=== PATIENT | female | born 1960 | race Caucasian/White ===

== ENCOUNTER 2020-02-17 06:36 | Inpatient (IN) | payer OTHER ==
[2020-02-17] MEDS ORDERED: Ondansetron PF 4 MG/2 ML Vial ONE (07:39)
[2020-02-17] MEDS ORDERED: Lorazepam 2 MG/ML VIAL ONE (07:39)
[2020-02-17] MEDS ORDERED: Morphine 4 MG/ML VIAL ONE (07:39)
[2020-02-17] MEDS ORDERED: Ketorolac Tromethamine 30 MG/ML VIAL ONE (07:39)
[2020-02-17 07:52] LABS: #Lymphocytes 1.1 thou/uL (1.20-3.40); #Monocytes 0.4 thou/uL (0.11-0.59); #Neutrophils 3.4 thou/uL (1.40-6.50); %Basophils 0.5 % (0.0-1.0); %Eosinophils 0.5 % (0.0-10.0); %Lymphocytes 21.9 % (21.0-51.0); Hemoglobin 14.1 g/dL (12.0-16.0); Mean Corpuscular HGB CONC 34.6 g/dL (32.0-36.0); Mean Corpuscular Hemoglobin 34.4 pg (27.0-31.0); Mean Corpuscular Volume 99.6 fL (78.0-98.0); Mean Platelet Volume 6.8 fL (7.4-10.4); Platelet Count 238 thou/uL (130-400); RBC Distribution Width 10.6 % (11.5-14.5); Red Blood Cell (RBC) Count 4.11 mill/uL (4.20-5.40)
[2020-02-17 08:01] LABS: PTT 25.5 sec (22.9-36.1); Prothrombin Time 12.9 sec (12.0-14.7)
[2020-02-17 08:16] LABS: ALT (SGPT) 13 U/L (8-55); AST (SGOT) 18 U/L (5-34); Albumin 4.2 g/dL (3.4-4.8); Alkaline Phosphatase 83 U/L (40-110); Anion Gap 16 mmol/L (10-20); BUN (Urea Nitrogen) 13 mg/dL (9.8-20.1); Bilirubin, Total 0.6 mg/dL (0.2-1.2); Calc. Creatinine Clearance 0 mL/min (70-130); Calcium 9.3 mg/dL (7.8-10.44); Carbon Dioxide 23 mmol/L (23-31); Chloride 105 mmol/L (98-107); Estimated GFR-MDRD 69; Globulin 2.6 g/dL (2.4-3.5); Glucose 131 mg/dL (80-115); Potassium 3.7 mmol/L (3.5-5.1); Protein, Total 6.8 g/dL (6.0-8.3); Sodium 140 mmol/L (136-145)
[2020-02-17 08:41] LABS: Bilirubin Negative (Negative); Blood, Urine Negative (Negative); Clarity Clear (Clear); Glucose, Urine (Dipstick) Normal (Negative); Ketone, Urine Negative (Negative); Leukocyte Negative Leu/uL (Negative); Nitrite Negative (Negative); Protein, Urine (Dipstick) Negative (Neg-Trace); Specific Gravity, Urine 1.007 (1.002-1.036); Urobilinogen Normal mg/dL (Less than 2); pH, Urine 6.5 (5.0-9.0)
--- NOTE | 2020-02-17 09:35 | CON ---
DATE OF CONSULTATION: 02/17/2020 CHIEF COMPLAINT: Left hip pain. HISTORY OF PRESENT ILLNESS: Ms. Robbins is a 59-year-old female, who has presented to the emergency department today with left hip pain. Approximately 5 weeks ago, she fell. She fractured her distal radius at that time and has been in a brace. She has had hip pain since her fall. She has had difficulty with ambulation. She had an x-ray taken 2 to 3 weeks ago in [place], which was reported to be negative. She continued to have hip pain until last night, when she twisted the hip and fell. She had a pop before she fell and immediate pain. She was unable to ambulate after this. She had severe pain in the groin. She was taken to the emergency department. X-rays have shown a displaced femoral neck fracture. PAST MEDICAL HISTORY: No active medical problems. PAST SURGICAL HISTORY: No recent surgeries. REVIEW OF SYSTEMS: Positive for left hip pain and wrist pain. FAMILY MEDICAL HISTORY: Noncontributory. ALLERGIES: NO KNOWN DRUG ALLERGIES. IMAGES: Left hip x-ray demonstrated displaced femoral neck fracture. The patient has shortening of the limb. PHYSICAL EXAMINATION: VITAL SIGNS: Stable. The patient is afebrile. GENERAL: She is alert and oriented, in no apparent distress. Breathing comfortably. HEENT: Normocephalic and atraumatic. RESPIRATORY: Breathing comfortably. ABDOMEN: Soft, nontender, nondistended. MUSCULOSKELETAL: The patient's left leg has pain with motion. The left leg is shortened and externally rotated. She is able to flex and extend the foot and ankle. She is in a wrist brace on the left. IMPRESSION: Left femoral neck fracture, likely subacute, but newly displaced. PLAN: At this point, the patient will need surgical intervention. I have recommended total hip arthroplasty for her, given her very active status and fairly young age. I think total hip will give her the best chance of full recovery. She is from [place] and her sons would like her to be transferred to [place] for this, I think this would be just fine. I am happy to treat her if she does stay here. She will be n.p.o. for now. She has had a COVID test, which is pending. She has had appropriate labs. Again, I am available, we will discuss surgical intervention more if she decides to stay. Job ID: [id number]
[2020-02-17 09:44] LABS: SARS-CoV-2 NAA Rapid Test Not Detected (NotDetected)
--- NOTE | 2020-02-17 10:10 | RAD ---
TWO VIEWS LEFT HIP: HISTORY: Left hip pain after feeling a pop. FINDINGS: Two views of the left hip show a fracture of the left femoral neck. Mild soft tissue swelling is see n. No dislocation of the femoral head is seen. IMPRESSION: Left femoral neck fracture. POS: MARIA MA
--- NOTE | 2020-02-17 10:11 | RAD ---
SINGLE VIEW OF THE PELVIS: COMPARISON: None. HISTORY: The patient felt a pop and left hip pain. FINDINGS: A single view of the pelvis shows a fracture of the left femoral neck. Soft tissue swelling is seen surrounding the left hip. No degenerative changes are seen in the hip. No dislocation of either fem oral head is seen. Mild degenerative changes are seen in the lumbar spine. IMPRESSION: Left femoral neck fracture. POS: EAA
--- NOTE | 2020-02-17 10:11 | RAD ---
SINGLE VIEW OF THE CHEST: COMPARISON: None. HISTORY: Left hip fracture. Preoperative radiograph. FINDINGS: Single view of the chest shows a normal sized cardiomediastinal silhouette. There is no evidence of c onsolidation, mass, or pleural effusion. The bones are unremarkable. IMPRESSION: No evidence of acute cardiopulmonary disease. POS: EAA
[2020-02-17] MEDS ORDERED: Fentanyl 100 MCG/2 ML VIAL ONE (11:11)
[2020-02-17] MEDS ORDERED: traMADol HCl 50 MG TAB PO PRN ×2 (11:25)
[2020-02-17] MEDS ORDERED: Dextrose 5% in Water 1,000 ML IV PRN (11:25)
[2020-02-17] MEDS ORDERED: Ondansetron ODT 4 MG TAB PO PRN (11:25)
[2020-02-17] MEDS ORDERED: Morphine 2 MG/ML VIAL SLOW IVP PRN (11:25)
[2020-02-17] MEDS ORDERED: Ondansetron PF 4 MG/2 ML Vial IVP PRN ×2 (11:25→17:57)
[2020-02-17] MEDS ORDERED: Dextrose 50% Abboject 50 ML SYRINGE SLOW IVP PRN (11:25)
[2020-02-17] MEDS ORDERED: Digoxin 0.5 MG/2 ML AMP ONE (11:49)
[2020-02-17] MEDS ORDERED: Famotidine 20 MG TAB PO SCH (13:15)
[2020-02-17 14:10] VITALS: BMI 24.5
[2020-02-17 16:52] LABS: Magnesium 1.9 mg/dL (1.6-2.6); Phosphorus 3.9 mg/dL (2.3-4.7)
[2020-02-17] MEDS: Cyclobenzaprine 10 MG TAB PO PRN ×2 (17:00→23:40)
[2020-02-17] MEDS: Acetaminophen 325 MG TAB PO SCH ×2 (17:00→23:39)
[2020-02-17] MEDS: Ibuprofen 600 MG TAB PO SCH ×2 (17:01→20:51)
--- NOTE | 2020-02-17 17:15 | HP ---
REQUESTING PHYSICIAN: Torrey Yeboah MD ATTENDING SURGEON: Sharon Martin MD CONSULTATIONS: Orthopedics, Dr. Harden. HISTORY OF PRESENT ILLNESS: The patient is a 59-year-old woman who was brought to the emergency department this morning after she was outside on her porch when she reportedly had felt a pop in her hip and was unable to bear weight. She was brought to the emergency department and evaluated and examined, noted to have a left femoral neck fracture. The patient gives a history of this pain in her hip actually began 5 weeks prior when she fell. She was noted to have a distal radius fracture, that was treated with a splint and told that her hip was a groin strain and progressively got worse until this morning when she felt this pop. The patient denies loss of consciousness or any syncopal events preceding her fall. ALLERGIES: NONE. CURRENT MEDICATIONS: 1. Regular strength aspirin. 2. Estradiol patch. 3. Progestrin. 4. The patient also takes metoprolol, unknown dosage, when she feels her heart rate become rapid. PAST MEDICAL HISTORY: Atrial fibrillation. SURGICAL HISTORY: D and C, . SOCIAL HISTORY: The patient lives here locally with the majority of her family in [place]. She denies drug, tobacco, or alcohol use. REVIEW OF SYSTEMS: A 10-point review of systems is negative unless otherwise stated. PHYSICAL EXAMINATION: VITAL SIGNS: Blood pressure 127/98, heart rate 104, respirations 16, and oxygen saturation is 96% on room air. GENERAL: The patient is resting comfortably in bed. She is awake, alert, conversant, and appropriate. She is currently medicated with narcotics and is having some trouble with recall. Fortunately, her son is here to help. HEENT: Head is normocephalic and atraumatic. Eyes, extraocular motion intact. PERRLA bilaterally. Ears are atraumatic without discharge. Nose is atraumatic without discharge. Oropharynx is clear. NECK: Nontender. Trachea is midline with no JVD. CHEST: Clear to auscultation with good inspiratory and expiratory effort. HEART: Irregularly irregular, consistent with her atrial fibrillation. ABDOMEN: Soft, flat, and nontender with active bowel sounds. PELVIS: Stable with tenderness to palpation to the left hip consistent with her fracture. EXTREMITIES: Neurovascularly intact x4. Left upper extremity has a Velcro brace in place. BACK: By report is atraumatic and nontender. LABORATORY FINDINGS: White blood cell count 5.0, hemoglobin 14.1, hematocrit 40.9, and platelets 238. Sodium 140, potassium 3.7, chloride 105, CO2 of 23, BUN 13, creatinine 0.84, and glucose 131. LFTs are unremarkable. INR 1.0. Urinalysis is unremarkable. COVID test is negative. RADIOGRAPHIC REPORTS: AP chest x-ray shows no evidence of acute cardiopulmonary process. AP pelvis shows a displaced left femoral neck fracture. Views of the left hip again demonstrate the left femoral neck fracture. ASSESSMENT AND PLAN: 1. Status post fall. 2. Left femoral neck fracture. 3. History of atrial fibrillation with intermittent in rapid ventricular response. 4. Acute pain secondary to above. Plan will be to admit the patient to the telemetry floor. Per Dr. Harden, she will undergo surgery tomorrow. Today, she will have pulmonary toilet, gastritis and mechanical VTE prophylaxis, and pain control. Postoperatively, we will begin physical and occupational therapy and discuss placement. Per the family's wishes, attempts were made to transfer her to [facility] in [place], but they were declined, so the patient will have her surgical procedure here and we will discuss with Case Management placement in the [place] area. We will use metoprolol for rate control. The patient was evaluated and examined with Dr. Martin prior to this dictation. Job ID: [id number]
[2020-02-17] MEDS: Sodium Chloride 0.9% 1,000 ML IV SCH ×2 (17:17→20:08)
[2020-02-17] MEDS ORDERED: diphenhydrAMINE 50 MG/ML VIAL IVP PRN (17:57)
[2020-02-17] MEDS ORDERED: Zolpidem Tartrate 5 MG TAB PO PRN (17:57)
[2020-02-17] MEDS ORDERED: diphenhydrAMINE 25 MG CAP PO PRN (17:57)
[2020-02-17] MEDS ORDERED: Naloxone HCl 0.4 mg/ml Vial IV PRN (17:57)
[2020-02-17] MEDS ORDERED: diphenhydrAMINE 50 MG/ML VIAL IM PRN (17:57)
[2020-02-17] MEDS ORDERED: Promethazine HCl 25 MG/ML VIAL IM PRN (17:57)
[2020-02-17] MEDS ORDERED: fentaNYL Citrate/PF 2,000 MCG in Sodium Chloride 0.9% 60 ML IV PRN (17:57)
[2020-02-17] MEDS ORDERED: Communication Order-Pharmacy FS SCH (18:00)
[2020-02-17] MEDS ORDERED: Fentanyl 100 MCG/2 ML VIAL SLOW IVP SCH ×2 (18:00→18:45)
[2020-02-17] MEDS: Famotidine 20 MG TAB PO SCH (20:50)
[2020-02-18] MEDS: Ibuprofen 600 MG TAB PO SCH ×3 (02:56→21:14)
[2020-02-18] MEDS: Acetaminophen 325 MG TAB PO SCH ×3 (02:56→17:33)
[2020-02-18 05:49] LABS: Anion Gap 11 mmol/L (10-20); BUN (Urea Nitrogen) 9 mg/dL (9.8-20.1); Calc. Creatinine Clearance 84 mL/min (70-130); Calcium 7.9 mg/dL (7.8-10.44); Carbon Dioxide 24 mmol/L (23-31); Chloride 106 mmol/L (98-107); Estimated GFR-MDRD 77; Glucose 103 mg/dL (80-115); Magnesium 1.8 mg/dL (1.6-2.6); Phosphorus 3.1 mg/dL (2.3-4.7); Potassium 3.9 mmol/L (3.5-5.1); Sodium 137 mmol/L (136-145)
[2020-02-18 05:57] LABS: Band 2 % (5-11); Hemoglobin 12.3 g/dL (12.0-16.0); Lymphocytes 38 % (21-51); MDiff Complete? YES; Macrocytosis SLIGHT = 6-15 cells (100X) (0-5/hpf); Mean Corpuscular HGB CONC 34.5 g/dL (32.0-36.0); Mean Corpuscular Hemoglobin 34.8 pg (27.0-31.0); Mean Platelet Volume 6.9 fL (7.4-10.4); Monocytes 26 % (0-10); Neutrophil 34 % (42-75); Platelet Count 201 thou/uL (130-400); Platelet Morphology Comment Appears Adequate; RBC Distribution Width 10.7 % (11.5-14.5); Red Blood Cell (RBC) Count 3.52 mill/uL (4.20-5.40); White Blood Cell (WBC) Count 4.1 thou/uL (4.8-10.8)
[2020-02-18] MEDS ORDERED: Magnesium Sulfate 3 GM in Sodium Chloride 0.9% 250 ML 250 ML IVPB SCH ×2 (08:00→15:15)
[2020-02-18] MEDS ORDERED: Scopolamine 1.5 mg/72 hour Patch ONE (09:11)
[2020-02-18] MEDS ORDERED: Dexamethasone 4 mg/ml Vial ONE (09:13)
[2020-02-18] MEDS ORDERED: Fentanyl 100 MCG/2 ML VIAL ONE ×2 (09:13→10:13)
[2020-02-18] MEDS ORDERED: Midazolam HCl 2 mg/2 ml Vial ONE (09:13)
[2020-02-18] MEDS ORDERED: ePHEDrine 50 MG/ML VIAL ONE (10:37)
[2020-02-18] MEDS ORDERED: Rocuronium Bromide 10 MG/ML (10ML VIAL) ONE (10:37)
[2020-02-18] MEDS ORDERED: Ondansetron PF 4 MG/2 ML Vial ONE (10:37)
[2020-02-18] MEDS ORDERED: Lidocaine 1% PF 5 ML VIAL ONE (10:37)
[2020-02-18] MEDS ORDERED: Ketorolac Tromethamine 30 MG/ML VIAL ONE (10:37)
[2020-02-18] MEDS ORDERED: Glycopyrrolate 0.2 MG/ML 5 ML SYRINGE ONE (10:37)
[2020-02-18] MEDS ORDERED: Dexamethasone 20 MG/5 ML VIAL ONE ×2 (10:37)
[2020-02-18] MEDS ORDERED: PROPOFOL 200 MG/20 ML VIAL ONE (10:37)
[2020-02-18] MEDS ORDERED: Bupivacaine HCl 0.5%/Epinephrine 1:200,000/PF 30 ml Vial ONE (10:37)
--- NOTE | 2020-02-18 12:07 | OP ---
DATE OF PROCEDURE: 02/18/2020 PROCEDURE PERFORMED: Left total hip arthroplasty. PREOPERATIVE DIAGNOSIS: Left femoral neck fracture. POSTOPERATIVE DIAGNOSIS: Left femoral neck fracture. COMPLICATIONS: None. ESTIMATED BLOOD LOSS: 150 mL. ELEVATOR EXAMINER AND ADJUSTER: Jordyn Arenas PA-C IMPLANTS: Mcdonald total hip arthroplasty with a size 4 Accolade stem, size 52 acetabular cup with a 10 degree polyethylene shell, femoral head is 36 mm, -5 length. INDICATIONS: Ms. Robbins is a 59-year-old female, who has fallen and fractured her left femoral neck. She had a displaced femoral neck fracture that will best be treated by total hip arthroplasty. The patient's alternative treatment options have been reviewed. Risks have been reviewed as well. Risks to include infection, neurovascular injury, instability of the hip, DVT, PE, and others. DESCRIPTION OF PROCEDURE: Ms. Robbins was identified in the preoperative holding area. Her correct extremity was marked. She was carried to the operating room. She was positioned supine. General anesthesia was induced. A multidisciplinary time-out was performed. The left lower extremity was prepped and draped in sterile fashion. We began the procedure with posterior approach to the hip. We dissected down through the subcutaneous tissues to the fascia, which was opened. We explored more deeply down to the piriformis tendons and short external rotators. These were subperiosteally divided from the proximal femur. This allowed us exposure of the underlying capsule. We performed a capsulotomy in a box fashion. At this point, we removed the broken femoral head and neck fragments. We then performed a new osteotomy of the femoral neck. At this point, we cleared the acetabular shell of any remnants and irrigated thoroughly. We then moved to the femur. We entered the intramedullary canal of the femur with a broach. We broached up to a size 4. This gave a very stable fit and fill. We trialed off this. A -5 head length was appropriate with leg length and good range of motion and stability. At this point, we removed the trial components. We placed our final components. Again, we reduced the hip. We thoroughly irrigated it and then closed with #5 Ethibond for the short external rotators and capsule through drill holes. We then completed a layered closure including the fascia and subcutaneous tissues. A sterile dressing was applied. The collections assistant surgeon was responsible for positioning the patient, preparing the injured extremity, applying the tourniquet, and assisting in preparation for surgery. The collections assistant was instrumental in reducing the injured limb by applying traction and reduction maneuvers as well as holding retractors and reduction tools. The collections assistant also was instrumental in assisting in exposure throughout the operation using appropriate retractors. The collections assistant participated in closure of the operative site as well as dressing application and splint application. Job ID: [id number]
[2020-02-18] MEDS ORDERED: Promethazine HCl 25 MG/ML VIAL IM PRN (12:15)
[2020-02-18] MEDS ORDERED: Promethazine HCl 25 MG/ML VIAL SLOW IVP PRN (12:15)
[2020-02-18] MEDS ORDERED: Ondansetron HCl/PF 4 MG/2 ML Vial IVP PRN (12:15)
[2020-02-18] MEDS: Famotidine 20 MG TAB PO SCH ×2 (14:18→21:13)
--- NOTE | 2020-02-18 14:32 | RAD ---
EXAM: Single view of the left hip HISTORY: Status post hip arthroplasty COMPARISON: 02/17/2020 FINDINGS/IMPRESSION: A single view of the left hip shows the patient is status post left hip arthropl asty without perihardware lucency or fracture. Overlying skin chuy are from recent surgery.
--- NOTE | 2020-02-18 14:33 | RAD ---
Exam: Single view of the pelvis HISTORY: Status post left hip arthroplasty COMPARISON: 02/17/2020 FINDINGS: A single view the pelvis shows the patient is status post left hip arthroplasty without per ihardware lucency or fracture. Overlying skin chuy are from recent surgery. No degenerative changes seen in the right hip. IMPRESSION: Status post left hip arthroplasty without evidence of complication.
[2020-02-18] MEDS ORDERED: Vancomycin 1.5 GRAM/300 ML BAG 1.5 GM in Premix Bag 1 BAG IVPB SCH (16:30)
[2020-02-18] MEDS: CEFAZOLIN 2 GM in Premix Bag 1 BAG IVPB SCH (18:43)
[2020-02-19] MEDS: Acetaminophen 325 MG TAB PO SCH ×5 (00:07→23:59)
[2020-02-19] MEDS: CEFAZOLIN 2 GM in Premix Bag 1 BAG IVPB SCH ×3 (02:11→21:04)
--- NOTE | 2020-02-19 04:15 | HP ---
ADDENDUM: This is an addendum to the H and P dictated by Trent Gates on 02/17/2020. For full details, please see that H and P, the details of which I have confirmed. The patient was seen yesterday afternoon after her admission to the hospital. In short, she fell several weeks ago and broke her arm and had left hip pain, but reportedly had a normal hip or pelvic x-ray at an outside facility. She then had a popping sensation in her left hip and then fell and was unable to bear weight on her leg and was found to have a left femoral neck fracture. She was admitted to the hospital with plans to undergo operative fixation by Orthopedics. When I saw her, she was having muscle spasms in her left hip and thigh area, but was otherwise pain free. PAST MEDICAL HISTORY: She has a past medical history of atrial fibrillation, but is not on any blood thinners for this. ALLERGIES: SHE HAS NO ALLERGIES. MEDICATIONS: Takes; 1. Aspirin. 2. Estradiol. 3. Progestin. 4. Metoprolol as needed. PHYSICAL EXAMINATION: Complete physical examination was performed. HEENT: Head was atraumatic. Pupils are equal with extraocular movements intact. Face was symmetric with no tenderness to palpation or asymmetry. NECK: Supple without lymphadenopathy or thyroid nodules. HEART: Regular in its rate and rhythm without murmurs, rubs, or gallops. LUNGS: Clear to auscultation bilaterally. No pain with palpation of the chest, abdomen, or pelvis, and no instability or crepitus. ABDOMEN: Soft, nontender, nondistended without masses or hernias. EXTREMITIES: Warm and well perfused with normal distal pulses and normal sensation. She has slight foreshortening of the left leg. Left arm was in a splint with normal movement and sensation of the fingers. No deformity to the right arm. LABORATORY DATA: Lab work was unremarkable. Coags were normal and COVID test was negative. Chest x-ray was unremarkable. AP pelvis showed a left femoral neck fracture. ASSESSMENT AND PLAN: Left femoral neck fracture, possible with subclinical injury at the time of her initial fall and now with obvious fracture. She is going to undergo surgery for this and will undergo physical therapy and rehab postoperatively. Initially, she was thinking about transferring to [place], but she has decided to proceed with surgery here. Job ID: [id number]
[2020-02-19 05:54] LABS: Anion Gap 12 mmol/L (10-20); BUN (Urea Nitrogen) 8 mg/dL (9.8-20.1); Calc. Creatinine Clearance 90 mL/min (70-130); Calcium 7.8 mg/dL (7.8-10.44); Carbon Dioxide 25 mmol/L (23-31); Chloride 105 mmol/L (98-107); Estimated GFR-MDRD 84; Glucose 123 mg/dL (80-115); Magnesium 2.1 mg/dL (1.6-2.6); Phosphorus 2.5 mg/dL (2.3-4.7); Potassium 4.2 mmol/L (3.5-5.1); Sodium 138 mmol/L (136-145)
[2020-02-19] MEDS: Ibuprofen 600 MG TAB PO SCH ×3 (05:54→21:02)
[2020-02-19 06:15] LABS: Band 2 % (5-11); Hemoglobin 10.7 g/dL (12.0-16.0); Lymphocytes 35 % (21-51); MDiff Complete? YES; Macrocytosis SLIGHT = 6-15 cells (100X) (0-5/hpf); Mean Corpuscular Hemoglobin 34.1 pg (27.0-31.0); Mean Platelet Volume 7.6 fL (7.4-10.4); Monocytes 12 % (0-10); Neutrophil 51 % (42-75); Platelet Count 175 thou/uL (130-400); Platelet Morphology Comment Appears Adequate; RBC Distribution Width 10.6 % (11.5-14.5); Red Blood Cell (RBC) Count 3.12 mill/uL (4.20-5.40); White Blood Cell (WBC) Count 3.9 thou/uL (4.8-10.8)
[2020-02-19] MEDS ORDERED: Vancomycin 1.5 GRAM/300 ML BAG ONE (07:47)
[2020-02-19] MEDS ORDERED: Fentanyl 100 MCG/2 ML VIAL ONE (08:03)
[2020-02-19] MEDS ORDERED: Dexmedetomidine 200 MCG/2 ML VIAL ONE (08:03)
[2020-02-19] MEDS ORDERED: Vancomycin 1.5 GRAM/300 ML BAG 1.5 GM in Premix Bag 1 BAG IVPB SCH (09:00)
[2020-02-19] MEDS ORDERED: PACU-Morphine 4MG/ML VIAL SLOW IVP PRN (09:02)
[2020-02-19] MEDS ORDERED: Naloxone HCl 0.4 mg/ml Vial IV PRN (09:02)
[2020-02-19] MEDS ORDERED: HYDROmorphone 10 mg/100 ml CADD IVPB PRN ×2 (09:02→11:57)
[2020-02-19] MEDS ORDERED: Promethazine HCl 25 MG/ML VIAL IM PRN ×2 (09:02)
[2020-02-19] MEDS ORDERED: diphenhydrAMINE 50 MG/ML VIAL IM PRN (09:02)
[2020-02-19] MEDS ORDERED: Promethazine HCl 25 MG/ML VIAL SLOW IVP PRN (09:02)
[2020-02-19] MEDS ORDERED: Ondansetron HCl/PF 4 MG/2 ML Vial IVP PRN (09:02)
[2020-02-19] MEDS ORDERED: diphenhydrAMINE 25 MG CAP PO PRN (09:02)
[2020-02-19] MEDS ORDERED: diphenhydrAMINE 50 MG/ML VIAL IVP PRN (09:02)
[2020-02-19] MEDS ORDERED: HYDROmorphone 2 MG/ML VIAL SLOW IVP PRN (09:02)
[2020-02-19] MEDS ORDERED: Ondansetron PF 4 MG/2 ML Vial IVP PRN (09:02)
[2020-02-19] MEDS ORDERED: Zolpidem Tartrate 5 MG TAB PO PRN (09:02)
[2020-02-19] MEDS ORDERED: Communication Order-Pharmacy FS SCH (09:15)
[2020-02-19] MEDS ORDERED: Bupivacaine PF 0.5% 30 ML VIAL ONE (09:45)
[2020-02-19] MEDS ORDERED: EPINEPHrine 1 MG/ML AMP ONE (09:46)
--- NOTE | 2020-02-19 09:57 | RAD ---
Single view left hip: 02/19/2020 COMPARISON: 02/18/2020 HISTORY: Hip surgery FINDINGS: Single obliquely oriented frontal radiograph of the left hip demonstrates a left hip arthro plasty. There is a new cerclage wire involving the proximal left femoral shaft. Lateral soft tissue gas noted with irregularity of the skin laterally consistent with recent surgery. IMPRESSION: Left hip arthroplasty.
[2020-02-19] MEDS ORDERED: HYDROmorphone 0.5 MG/0.5 ML SYRINGE ONE (10:08)
--- NOTE | 2020-02-19 10:55 | RAD ---
Frontal radiograph pelvis: 02/19/2020 COMPARISON: 02/18/2020 HISTORY: Left hip arthroplasty FINDINGS: Left lateral cutaneous chuy are present. There is postoperative gas lateral to the left greater trochanter. There is a stable left hip arthroplasty with a new cerclage wire associated with the proximal left femoral shaft. The pelvic ring appears intact. There is no widening of the sac roiliac joints or the pubic symphysis. IMPRESSION: Postoperative imaging as above.
--- NOTE | 2020-02-19 11:00 | RAD ---
Crosstable lateral view of the left hip: 02/19/2020 HISTORY: Evaluate hip following surgery FINDINGS: There is a left hip arthroplasty with no evidence for dislocation. A proximal femoral cercl age wire is noted. Pression: Postoperative imaging as above.
--- NOTE | 2020-02-19 11:22 | OP ---
DATE OF PROCEDURE: 02/19/2020 PROCEDURE PERFORMED: Revision of left total hip arthroplasty. PREOPERATIVE DIAGNOSIS: Status post left hip arthroplasty for femoral neck fracture, now with leg length discrepancy. POSTOPERATIVE DIAGNOSIS: Status post left hip arthroplasty for femoral neck fracture, now with leg length discrepancy. COMPLICATIONS: None. ESTIMATED BLOOD LOSS: 100 mL. KNITTING MACHINE FIXER HEAD: Jordyn Arenas PA-C. IMPLANTS USED: A size 4 Accolade hip stem with a 36 mm -5 femoral head as well as a 2.0 mm [place]iles cable. INDICATIONS: Ms. Robbins is a 59-year-old female, who has fallen recently and fractured her left femoral neck. She underwent total hip arthroplasty yesterday for her femoral neck fracture. Her surgical procedure went well. However, postoperatively, we noticed that she had a leg length discrepancy of approximately 12 mm. We had a long discussion regarding treatment of this including observation versus revision. The patient wanted to proceed with revision surgery to obtain better equal leg length. Goal is to revise the hip so that she has equal leg length and a stable hip. DESCRIPTION OF PROCEDURE: Ms. Robbins was identified in the preoperative holding area. Her correct extremity was marked. She was carried to the operating room. She was positioned supine. General anesthesia was induced. A multidisciplinary time-out was performed. The left lower extremity was prepped and draped in sterile fashion. We began the procedure by opening the patient's previous incision. We dissected down through the subcutaneous tissues and opened the fascia. This brought us down to the deep aspect of the hip. We cut our previously placed Ethibond sutures, releasing the capsule and piriformis tendons. At this point, we were able to dislocate the total hip. We knocked off the head using an osteotome. We then placed our stem extractor and removed the femoral stem. We thoroughly irrigated with copious lavage. At this point, we checked the acetabular cup, was in good position, which it was. We then proceeded to prepare the femoral canal. We began broaching up with a size 2 and then to a size 3. We then moved to a size 4. We were able to countersink the size 4. We removed this again and made a new osteotomy of the femoral neck approximately 10 mm distal to the previous osteotomy. We measured this with a ruler. We then re-seated the femoral stem and countersunk at approximately 2 additional millimeter. We then calcar planed. This gave us a total of 12 mm of shortening. Next, we trialed. A -5 length was stable throughout arc of motion. The leg lengths were equal by palpation. We removed the trial components. We then placed our final components in appropriate position. Again, we reduced the hip. We then repaired the short external rotators and capsule with Ethibond suture followed by #2 Vicryl suture and layered closure. A sterile dressing was applied. The patient was taken to the recovery room in good condition at this point. The middle school assistant principal was involved in positioning the patient, prepping the limb. Assisting in the surgical approach and holding retractors as well as holding the limb. The middle school assistant principal also help in reduction of the hip and wound closure. Job ID: [id number] [facility]
[2020-02-19] MEDS: Cyclobenzaprine 10 MG TAB PO PRN (11:35)
[2020-02-19] MEDS: Famotidine 20 MG TAB PO SCH ×2 (11:36→21:02)
[2020-02-19] MEDS ORDERED: Rocuronium Bromide 10 MG/ML (10ML VIAL) ONE (12:43)
[2020-02-19] MEDS ORDERED: PROPOFOL 200 MG/20 ML VIAL ONE (12:43)
[2020-02-19] MEDS ORDERED: Lidocaine 1% PF 5 ML VIAL ONE (12:43)
[2020-02-19] MEDS ORDERED: Ondansetron PF 4 MG/2 ML Vial ONE (12:43)
[2020-02-19] MEDS ORDERED: Dexamethasone 20 MG/5 ML VIAL ONE (12:43)
[2020-02-19] MEDS ORDERED: ePHEDrine 50 MG/ML VIAL ONE (12:43)
[2020-02-19] MEDS ORDERED: Ketorolac Tromethamine 30 MG/ML VIAL ONE (12:43)
[2020-02-20] MEDS: Acetaminophen 325 MG TAB PO SCH (05:56)
[2020-02-20] MEDS: Ibuprofen 600 MG TAB PO SCH ×3 (05:57→20:25)
[2020-02-20 06:28] LABS: Anion Gap 11 mmol/L (10-20); BUN (Urea Nitrogen) 9 mg/dL (9.8-20.1); Calc. Creatinine Clearance 93 mL/min (70-130); Calcium 7.8 mg/dL (7.8-10.44); Carbon Dioxide 25 mmol/L (23-31); Chloride 107 mmol/L (98-107); Estimated GFR-MDRD 86; Glucose 102 mg/dL (80-115); Magnesium 1.8 mg/dL (1.6-2.6); Phosphorus 2.2 mg/dL (2.3-4.7); Potassium 4.1 mmol/L (3.5-5.1); Sodium 139 mmol/L (136-145)
[2020-02-20 06:56] LABS: Hemoglobin 9.5 g/dL (12.0-16.0); Mean Corpuscular HGB CONC 33.8 g/dL (32.0-36.0); Mean Corpuscular Hemoglobin 34.4 pg (27.0-31.0); Mean Platelet Volume 7.1 fL (7.4-10.4); Platelet Count 186 thou/uL (130-400); RBC Distribution Width 10.8 % (11.5-14.5); Red Blood Cell (RBC) Count 2.76 mill/uL (4.20-5.40); White Blood Cell (WBC) Count 4.3 thou/uL (4.8-10.8)
[2020-02-20 06:57] LABS: Band 2 % (5-11); Hypochromia SLIGHT = 6-15 cells (100X) (0-5/hpf); Lymphocytes 45 % (21-51); MDiff Complete? YES; Monocytes 8 % (0-10); Neutrophil 45 % (42-75); Platelet Morphology Comment Appears Adequate
[2020-02-20] MEDS: Famotidine 20 MG TAB PO SCH ×2 (08:27→20:25)
[2020-02-20] MEDS: Ascorbic Acid 500 mg Chewable Tablet PO SCH (08:27)
[2020-02-20] MEDS: Ferrous Sulfate 325 MG TAB PO SCH ×2 (08:28→18:42)
[2020-02-20] MEDS ORDERED: HYDROcodone/Acetaminophen 7.5/325 mg Tablet PO PRN (10:55)
[2020-02-20] MEDS ORDERED: Cyclobenzaprine 10 MG TAB PO PRN (10:55)
[2020-02-20] MEDS: HYDROcodone/Acetaminophen 7.5/325 mg Tablet PO PRN (14:42)
[2020-02-20] MEDS: Cyclobenzaprine 10 MG TAB PO PRN (20:29)
[2020-02-21] MEDS: HYDROcodone/Acetaminophen 7.5/325 mg Tablet PO PRN ×2 (04:03→11:37)
[2020-02-21] MEDS: Cyclobenzaprine 10 MG TAB PO PRN (04:03)
[2020-02-21] MEDS: Ibuprofen 600 MG TAB PO SCH ×2 (05:29→13:30)
[2020-02-21 08:15] VITALS: TEMP 98
[2020-02-21] MEDS: Ascorbic Acid 500 mg Chewable Tablet PO SCH (08:41)
[2020-02-21] MEDS: Ferrous Sulfate 325 MG TAB PO SCH (08:41)
[2020-02-21] MEDS: Famotidine 20 MG TAB PO SCH (08:41)
[2020-02-21] MEDS ORDERED: Enoxaparin Sodium 40 MG/0.4 ML SYRINGE SC SCH (09:00)
[2020-02-21 12:58] VITALS: BP 101/65
[2020-02-21] MEDS ORDERED: Labetalol HCl 100 MG/20 ML VIAL SLOW IVP PRN (14:48)
== END 2020-02-21 16:15 | disposition home or self-care (01) | DRG 468 ==
LOC: ERS 06:36 → ERHOLD 11:25 → 2SE 13:53 → SURG A 02-19 10:53
PROVIDERS: ADMIT Surgery; ATTEND Surgery
PROC: 0SRB0JZ Replacement of Left Hip Joint with Synthetic Substitute, Open Approach (ICD-10-PCS; 2020-02-18)
PROC: 0SRB0JZ Replacement of Left Hip Joint with Synthetic Substitute, Open Approach (ICD-10-PCS; principal; 2020-02-19)
PROC: 0SPB0JZ Removal of Synthetic Substitute from Left Hip Joint, Open Approach (ICD-10-PCS; 2020-02-19)
DX: S72.002A Fracture of unspecified part of neck of left femur, initial encounter for closed fracture (principal); W19.XXXA Unspecified fall, initial encounter; I48.91 Unspecified atrial fibrillation; Z20.828 Contact with and (suspected) exposure to other viral communicable diseases; M21.752 Unequal limb length (acquired), left femur
CPT/HCPCS: 36415; 51702; 71045; 72170; 80048; 80053; 81003; 83735; 84100; 85025; 85610; 85730; 93005; 96374; 96375; C1776; J0171; J0690; J1100; J1160; J1170; J1650; J1885; J2060; J2250; J2270; J2405; J2550; J2704; J3010; J3370; J3475; J3490; J7050; Q0162; S0020; U0002